=== PATIENT | female | born 1960 | race Caucasian/White ===

== ENCOUNTER → 2017-04-14 12:55 | Outpatient (CLI) | payer MEDICARE ==
[2011-03-23 08:12] VITALS: BMI 27.5
== END | disposition home or self-care (01) ==
LOC: D.MAMMO 10:30
DX: Z12.31 Encounter for screening mammogram for malignant neoplasm of breast (principal)

== ENCOUNTER → 2018-09-20 18:23 | Outpatient (CLI) | payer MEDICARE ==
[2011-03-23 08:12] VITALS: BMI 27.5
== END | disposition home or self-care (01) ==
LOC: D.MAMMO 09-09 16:00
PROVIDERS: ATTEND Nurse Practitioner
DX: Z12.31 Encounter for screening mammogram for malignant neoplasm of breast (principal)

== ENCOUNTER → 2019-04-06 11:06 | Outpatient (CLI) | payer MEDICARE ==
[2011-03-23 08:12] VITALS: BMI 27.5
== END | disposition home or self-care (01) ==
LOC: D.US 11:06
PROVIDERS: ATTEND Nurse Practitioner
DX: E04.8 Other specified nontoxic goiter (principal)

== ENCOUNTER → 2019-04-25 13:21 | Outpatient (CLI) | payer MEDICARE, OTHER ==
[2011-03-23 08:12] VITALS: BMI 27.5
== END | disposition home or self-care (01) ==
LOC: D.CT 04-13 10:00
PROVIDERS: ATTEND Nurse Practitioner
DX: R22.1 Localized swelling, mass and lump, neck (principal)

== ENCOUNTER → 2019-11-10 22:00 | Outpatient (CLI) | payer MEDICARE, OTHER ==
[2011-03-23 08:12] VITALS: BMI 27.5
== END | disposition home or self-care (01) ==
LOC: D.MAMMO 11:00
PROVIDERS: ATTEND Nurse Practitioner
DX: Z12.31 Encounter for screening mammogram for malignant neoplasm of breast (principal)